=== PATIENT | female | born 2000 | race Hispanic/Latino ===

== ENCOUNTER 2020-08-04 02:47 | Emergency (ER) | payer MEDICAID ==
[2020-08-04 03:39] LABS: Basophils % (Auto) 0.4 % (0.0-1.8); Eosinophils # (Auto) 0.1 K/mm3 (0.0-0.4); Eosinophils % (Auto) 1.5 % (0.0-4.3); Hematocrit 37.1 % (30.3-42.9); Hemoglobin 12.6 gm/dl (10.1-14.3); Lymphocytes # (Auto) 2.6 K/mm3 (1.2-5.4); Lymphocytes % (Auto) 30.3 % (13.4-35.0); Mean Corpuscular HGB Conc 34 % (30-34); Mean Corpuscular Volume 83 fl (79-97); Monocytes # (Auto) 0.8 K/mm3 (0.0-0.8); Monocytes % (Auto) 9.7 % (0.0-7.3); Platelet Count 267 K/mm3 (140-440); Red Blood Count 4.48 M/mm3 (3.65-5.03); Red Cell Distribution Width 16.4 % (13.2-15.2)
[2020-08-04 03:59] LABS: Blood Urea Nitrogen 12 mg/dL (7-17); Calcium 8.7 mg/dL (8.4-10.2); Hemolysis Index 3
[2020-08-04 04:04] LABS: BUN/Creatinine Ratio 17
--- NOTE | 2020-08-04 04:47 | Emergency Department Report ---
HPI - General Chief Complaint: Psych Time Seen by Provider: 08/04/20 04:20 - HPI HPI: Room 16 The patient is a 20-year-old female present with a chief complaint of polysubstance abuse and suicidal ideation. Patient states she came to the emergency department because she has been suicidal since yesterday and she wishes to receive detox from multiple drugs. The patient states she had a plan to be run over by car by walking into traffic but she has not yet made any attempts at harming herself. Patient admits to cocaine, methamphetamine and marijuana use tonight. Patient states she is estimating between 3 to 5 weeks but says she has not yet seen an WILDLIFE CONTROL AGENT for this . Patient denies vaginal bleeding ED Past Medical Hx - Past Medical History Previous Medical History?: No - Surgical History Past Surgical History?: Yes Hx Appendectomy: Yes - Family History Family history: no significant - Social History Smoking Status: Current Every Day Smoker Substance Use Type: Cocaine, Marijuana, Methamphetamines - Medications Home Medications: Home Medications Medication Instructions Recorded Confirmed Last Taken Type Nitrofurantoin [place]/M-Cryst 100 mg PO BID #14 capsule 08/04/20 Unknown Rx [Macrobid CAP] ED Review of Systems ROS: Stated complaint: DRUG USE/SUICIDE Other details as noted in HPI Constitutional: no symptoms reported Eyes: denies: eye pain ENT: denies: throat pain Respiratory: no symptoms reported Cardiovascular: denies: chest pain Endocrine: no symptoms reported Gastrointestinal: denies: abdominal pain Genitourinary: denies: dysuria Musculoskeletal: denies: back pain Neurological: denies: headache Psychiatric: suicidal thoughts Physical Exam - Physical Exam Vital Signs: Vital Signs 08/04/20 02:55 Temperature 98.3 F Pulse Rate 117 H Respiratory 18 Rate Blood Pressure 121/75 O2 Sat by Pulse 99 Oximetry Physical Exam: GENERAL: The patient is well-developed female sitting in chair not appearing to be in acute distress HEENT: Normocephalic. Atraumatic. Extraocular motions are intact. Patient has moist mucous membranes. NECK: Supple. Trachea midline CHEST/LUNGS: Clear to auscultation. There is no respiratory distress noted. HEART/CARDIOVASCULAR: Regular. There is no tachycardia. There is no gallop rub or murmur. ABDOMEN: Abdomen is soft, nontender. Patient has normal bowel sounds. There is no abdominal distention. SKIN: There is no rash. There is no edema. There is no diaphoresis. NEURO: The patient is awake, alert, and oriented. The patient is cooperative. The patient has no focal neurologic deficits. The patient has normal speech and gait. MUSCULOSKELETAL: There is no evidence of acute injury. ED Course Vital Signs 08/04/20 02:55 Temperature 98.3 F Pulse Rate 117 H Respiratory 18 Rate Blood Pressure 121/75 O2 Sat by Pulse 99 Oximetry ED Medical Decision Making - Lab Data Result diagrams: 08/04/20 03:13 08/04/20 03:13 Laboratory Tests 08/04/20 08/04/20 08/04/20 03:13 03:13 03:13 WBC RBC Hgb Hct MCV MCH MCHC RDW Plt Count Lymph % (Auto) [place] % (Auto) Eos % (Auto) Baso % (Auto) Lymph # (Auto) [place] # (Auto) Eos # (Auto) Baso # (Auto) Seg Neutrophils % Seg Neutrophils # Sodium 138 Potassium 3.6 Chloride 104.8 Carbon Dioxide 21 L Anion Gap 16 BUN 12 Creatinine 0.7 Estimated GFR > 60 BUN/Creatinine Ratio 17 Glucose 71 Calcium 8.7 Total Creatine Kinase CK-MB (CK-2) CK-MB (CK-2) Rel Index Troponin T HCG, Quant Urine Color Urine Turbidity Urine pH Ur Specific [place] Urine Protein Urine Glucose (UA) Urine Ketones Urine Blood Urine Nitrite Urine Bilirubin Urine Urobilinogen Ur Leukocyte Esterase Urine WBC (Auto) Urine RBC (Auto) U Epithel Cells (Auto) Urine Bacteria (Auto) Urine Mucus Salicylates < 0.3 L Urine Opiates Screen Urine Methadone Screen Acetaminophen < 5.0 L Ur Barbiturates Screen Ur Phencyclidine Scrn Ur Amphetamines Screen U Benzodiazepines Scrn Urine Cocaine Screen U Marijuana (THC) Screen Drugs of Abuse Note Plasma/Serum Alcohol 08/04/20 08/04/20 08/04/20 03:13 03:13 03:13 WBC 8.6 RBC 4.48 Hgb 12.6 Hct 37.1 MCV 83 MCH 28 MCHC 34 RDW 16.4 H Plt Count 267 Lymph % (Auto) 30.3 [place] % (Auto) 9.7 H Eos % (Auto) 1.5 Baso % (Auto) 0.4 Lymph # (Auto) 2.6 [place] # (Auto) 0.8 Eos # (Auto) 0.1 Baso # (Auto) 0.0 Seg Neutrophils % 58.1 Seg Neutrophils # 5.0 Sodium Potassium Chloride Carbon Dioxide Anion Gap BUN Creatinine Estimated GFR BUN/Creatinine Ratio Glucose Calcium Total Creatine Kinase CK-MB (CK-2) CK-MB (CK-2) Rel Index Troponin T HCG, Quant 59501 H Urine Color Urine Turbidity Urine pH Ur Specific [place] Urine Protein Urine Glucose (UA) Urine Ketones Urine Blood Urine Nitrite Urine Bilirubin Urine Urobilinogen Ur Leukocyte Esterase Urine WBC (Auto) Urine RBC (Auto) U Epithel Cells (Auto) Urine Bacteria (Auto) Urine Mucus Salicylates Urine Opiates Screen Urine Methadone Screen Acetaminophen Ur Barbiturates Screen Ur Phencyclidine Scrn Ur Amphetamines Screen U Benzodiazepines Scrn Urine Cocaine Screen U Marijuana (THC) Screen Drugs of Abuse Note Plasma/Serum Alcohol < 0.01 08/04/20 08/04/20 08/04/20 03:13 03:26 03:26 WBC RBC Hgb Hct MCV MCH MCHC RDW Plt Count Lymph % (Auto) [place] % (Auto) Eos % (Auto) Baso % (Auto) Lymph # (Auto) [place] # (Auto) Eos # (Auto) Baso # (Auto) Seg Neutrophils % Seg Neutrophils # Sodium Potassium Chloride Carbon Dioxide Anion Gap BUN Creatinine Estimated GFR BUN/Creatinine Ratio Glucose Calcium Total Creatine Kinase 507 H CK-MB (CK-2) 4.6 H CK-MB (CK-2) Rel Index 0.9 Troponin T < 0.010 HCG, Quant Urine Color Yellow Urine Turbidity Cloudy Urine pH 5.0 Ur Specific [place] 1.021 Urine Protein 30 mg/dl Urine Glucose (UA) Neg Urine Ketones Neg Urine Blood Neg Urine Nitrite Neg Urine Bilirubin Neg Urine Urobilinogen 2.0 Ur Leukocyte Esterase Lg Urine WBC (Auto) 14.0 H Urine RBC (Auto) 2.0 U Epithel Cells (Auto) 33.0 H Urine Bacteria (Auto) 1+ Urine Mucus 1+ Salicylates Urine Opiates Screen Negative Urine Methadone Screen Negative Acetaminophen Ur Barbiturates Screen Negative Ur Phencyclidine Scrn Negative Ur Amphetamines Screen Positive U Benzodiazepines Scrn Negative Urine Cocaine Screen Positive U Marijuana (THC) Screen Positive Drugs of Abuse Note Disclamer Plasma/Serum Alcohol - EKG Data -: EKG Interpreted by Me EKG shows normal: sinus rhythm Rate: normal - EKG Data When compared to previous EKG there are: previous EKG unavailable Interpretation: normal EKG - Radiology Data Radiology results: report reviewed (Pelvic ultrasound), image reviewed (Pelvic ultrasound) [facility] [address] [place] [address] Ultrasound Report Signed Patient: MARIE DOLL MR#: [id number] : 2000 Acct:[id number] Age/Sex: 20 / F ADM Date: 08/04/20 Loc: ED Attending Dr: Ordering Physician: GO SEVILLA MD Date of Service: 08/04/20 Procedure(s): US OB transvaginal Accession Number(s): [id number] cc: GO SEVILLA MD ULTRASOUND OBSTETRIC INDICATION / CLINICAL INFORMATION: , medical clearance. Pelvic pain, cramping Clinical Gestational Age (GA) in weeks, days: TECHNIQUE: Transabdominal. Transvaginal COMPARISON: None available. FINDINGS: GESTATIONAL SAC: Well-defined oval shape and intrauterine in location. Based on gestational sac measurements, estimated age is 5 weeks 6 days YOLK SAC: No significant abnormality. EMBRYO/FETUS: No significant abnormality. - [place]-Rump Length = 0.18 cm- pole is too small for accurate dating - Heart Rate, beats per minute (if present) = not visualized at this time. ADNEXA: Left ovary: There is a 4.3 cm simple cyst present. There is a second complex cystic mass measuring 2.2 cm. Right ovary: Small complex cyst arising from the right ovary measuring 1.8 cm. FREE FLUID: Trace free fluid present in the cul-de-sac. ADDITIONAL FINDINGS: None. IMPRESSION: 1. Single intrauterine with estimated sonographic age of 5 weeks, 6 days. 2.It is too early in the gestation for visualization of cardiac activity. 3. Bilateral complicated ovarian cysts. Signer Name: Afua Savage MD Signed: 08/04/2020 5:46 AM Workstation Name: [id number] Transcribed By: Dictated By: Afua Savage MD [facility] Authenticated By: Afua Savage MD Signed Date/Time: 08/04/20545 DD/ 9 TD/TT: Print Cancel - Differential Diagnosis Suicidal ideation, polysubstance abuse, Critical care attestation.: If time is entered above; I have spent that time in minutes in the direct care of this critically ill patient, excluding procedure time. ED Disposition Clinical Impression: Suicidal ideation, Polysubstance abuse, UTI (urinary tract infection), Disposition: [id number]/TX-[id number] PSY HOSP/PSY UNIT Is pt being admited?: No Does the pt Need Aspirin: No Condition: Stable Prescriptions: Nitrofurantoin [place]/M-Cryst [Macrobid CAP] 100 mg PO BID #14 capsule Referrals: KAILEY COBURN MD [Primary Care Provider] - 3-5 Days Time of Disposition: 05:55 (Awaiting acceptance)
[2020-08-04 04:50] LABS: Creatine Kinase MB 4.6 ng/mL (0.0-4.0)
[2020-08-04 05:02] LABS: Bacteria,Urine 1+ /HPF (Negative); Bilirubin,Urine NEG (Negative); Blood,Urine NEG (Negative); Color,Urine Yellow (Yellow); Mucus,Urine 1+ /HPF
[2020-08-04 05:09] LABS: Benzodiazepines Screen,Urine Negative; Methadone Screen,Urine Negative; Opiate Screen,Urine Negative
[2020-08-04 05:31] LABS: Amphetamine Screen,Urine Positive; Cannabinoid Screen,Urine Positive; Cocaine Screen,Urine Positive
--- NOTE | 2020-08-04 05:51 | Ultrasound Report ---
ULTRASOUND OBSTETRIC INDICATION / CLINICAL INFORMATION: , medical clearance. Pelvic pain, cramping Clinical Gestational Age (GA) in weeks, days: TECHNIQUE: Transabdominal. Transvaginal COMPARISON: None available. FINDINGS: GESTATIONAL SAC: Well-defined oval shape and intrauterine in location. Based on gestational sac measu rements, estimated age is 5 weeks 6 days YOLK SAC: No significant abnormality. EMBRYO/FETUS: No significant abnormality. - [place]-Rump Length = 0.18 cm- pole is too small for accurate dating - Heart Rate, beats per minute (if present) = not visualized at this time. ADNEXA: Left ovary: There is a 4.3 cm simple cyst present. There is a second complex cystic mass measuring 2. 2 cm. Right ovary: Small complex cyst arising from the right ovary measuring 1.8 cm. FREE FLUID: Trace free fluid present in the cul-de-sac. ADDITIONAL FINDINGS: None. IMPRESSION: 1. Single intrauterine with estimated sonographic age of 5 weeks, 6 days. 2.It is too early in the gestation for visualization of cardiac activity. 3. Bilateral complicated ovarian cysts. Signer Name: Afua Savage MD Signed: 08/04/2020 5:46 AM Workstation Name: [id number]
--- NOTE | 2020-08-04 05:51 | Ultrasound Report ---
ULTRASOUND OBSTETRIC INDICATION / CLINICAL INFORMATION: , medical clearance. Pelvic pain, cramping Clinical Gestational Age (GA) in weeks, days: TECHNIQUE: Transabdominal. Transvaginal COMPARISON: None available. FINDINGS: GESTATIONAL SAC: Well-defined oval shape and intrauterine in location. Based on gestational sac measu rements, estimated age is 5 weeks 6 days YOLK SAC: No significant abnormality. EMBRYO/FETUS: No significant abnormality. - [place]-Rump Length = 0.18 cm- pole is too small for accurate dating - Heart Rate, beats per minute (if present) = not visualized at this time. ADNEXA: Left ovary: There is a 4.3 cm simple cyst present. There is a second complex cystic mass measuring 2. 2 cm. Right ovary: Small complex cyst arising from the right ovary measuring 1.8 cm. FREE FLUID: Trace free fluid present in the cul-de-sac. ADDITIONAL FINDINGS: None. IMPRESSION: 1. Single intrauterine with estimated sonographic age of 5 weeks, 6 days. 2.It is too early in the gestation for visualization of cardiac activity. 3. Bilateral complicated ovarian cysts. Signer Name: Afua Savage MD Signed: 08/04/2020 5:46 AM Workstation Name: [id number]
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
[2020-08-04] MEDS: NITROFURANTOIN MONOHYD/M-CRYST 100 MG CAP PO SCH ×2 (11:28→21:46)
--- NOTE | 2020-08-04 12:23 | Event Note ---
Date: 08/04/20 S: Patient has no complaints. O: Vital signs stable. Patient calm and cooperative. A: Depression; 5 weeks ; polysubstance abuse P: 1013 has been rescinded by psychiatry. Patient requesting detox. Reports that housing and social issues are her primary concern. Case management consult has been ordered by psychiatry team. Will await case management recommendations.
[2020-08-05] MEDS: NITROFURANTOIN MONOHYD/M-CRYST 100 MG CAP PO SCH ×2 (10:14→22:19)
--- NOTE | 2020-08-05 10:58 | Event Note ---
Date: 08/05/20 20-year-old female at approximately 5 weeks gestation who presented with suicidal ideation as well as requesting detox from several medications. Medically cleared and seen by mental health job setter/psychiatry who rescinded the 1013. Labs revealed asymptomatic bacteriuria, currently being treated with Macrobid given . Vital signs reviewed and are stable. Currently awaiting case management consult to assist with disposition.
--- NOTE | 2020-08-06 10:36 | Event Note ---
Date: 08/06/20 20-year-old female at approximately 5 weeks gestation who presented with suicidal ideation as well as requesting detox from several medications. Medically cleared and then seen by mental health in flight technician/psychiatry who rescinded the 1013. Labs revealed asymptomatic bacteriuria. Macrobid changed to Keflex 500 mg 3 times daily x4 days. Vital signs reviewed and are stable. Currently awaiting case management consult to assist with disposition
[2020-08-06] MEDS: cephALEXin 500 MG CAP PO SCH ×3 (11:34→20:37)
[2020-08-06] MEDS: NITROFURANTOIN MONOHYD/M-CRYST 100 MG CAP PO SCH (20:37)
[2020-08-07] MEDS: cephALEXin 500 MG CAP PO SCH (08:26)
[2020-08-07 08:41] VITALS: BP 109/57
[2020-08-07] MEDS ORDERED: ACETAMINOPHEN 325 MG TAB PO PRN (11:03)
[2020-08-07] MEDS ORDERED: PYRIDOXINE 50 MG TAB PO PRN (11:03)
--- NOTE | 2020-08-07 11:11 | Event Note ---
Date: 08/07/20 The patient was evaluated in the emergency department for symptoms described in the history of present illness. He/she was evaluated in the context of the global COVID-19 pandemic, which necessitated consideration that the patient might be at risk for infection with the virus that causes COVID-19. Institutional protocols and algorithms that pertain to the evaluation of patients at risk for COVID-19 are in a state of rapid change based on information released by regulatory bodies including the CDC and federal and state organizations. These policies and algorithms were followed during the patient's care in the emergency department. Please note that these policies, procedures and recommendations changed on a rapid basis. Patient resting comfortably in stretcher, and in no acute distress. medically cleared on initial ER evaluation. Laboratory studies, initial ER documentation reviewed and appreciated, nursing documentation reviewed and appreciated, the psychiatry team has cleared this patient.. Nursing team endorses no acute events this morning. Case management has been involved, and have reached out to [facility]; given that adrian boyce is a previable patient, with evidence of polysubstance abuse. It is unclear if [facility] has requested that this patient remain here in this emergency room, pending their evaluation, which would be unusual, as this patient does not have a viable , and she remains awake, alert, oriented, sober at this time, and exhibits decision-making capacity, and she can care for herself independently. I have also reached out to Adrian Canela, and risk-management, and I have requested that the case management/manager social team discussed with the risk management team, what the expectation and requirements are, in terms of this patient's occurrence of social issues. From a medical and psychiatric standpoint, she is suitable for discharge with outpatient follow-up. Vital Signs 08/04/20 08/04/20 08/04/20 02:55 08:04 20:10 Temperature 98.3 F 98.0 F 98.2 F Pulse Rate 117 H 92 H 80 Respiratory 18 20 18 Rate Blood Pressure 121/75 Blood Pressure 106/63 103/41 [Right] O2 Sat by Pulse 99 97 95 Oximetry 08/05/20 08/05/20 08/06/20 05:50 19:41 01:30 Temperature 98.6 F 99.2 F 98.9 F Pulse Rate 70 88 82 Respiratory 18 19 16 Rate Blood Pressure Blood Pressure 107/52 112/65 115/68 [Right] O2 Sat by Pulse 95 96 100 Oximetry 08/06/20 08/06/20 08/07/20 09:04 20:20 02:40 Temperature 98.7 F 99.1 F 98.2 F Pulse Rate 70 68 77 Respiratory 20 18 16 Rate Blood Pressure Blood Pressure 118/42 122/64 122/65 [Right] O2 Sat by Pulse 100 100 Oximetry 08/07/20 08:40 Temperature 98.3 F Pulse Rate 70 Respiratory 18 Rate Blood Pressure Blood Pressure 109/57 [Right] O2 Sat by Pulse 98 Oximetry Lab Results 08/04/20 08/04/20 08/04/20 Range/Units 03:13 03:13 03:13 WBC (4.5-11.0) K/mm3 RBC (3.65-5.03) M/mm3 Hgb (10.1-14.3) gm/dl Hct (30.3-42.9) % MCV (79-97) fl MCH (28-32) pg MCHC (30-34) % RDW (13.2-15.2) % Plt Count (140-440) K/mm3 Lymph % (Auto) (13.4-35.0) % Page % (Auto) (0.0-7.3) % Eos % (Auto) (0.0-4.3) % Baso % (Auto) (0.0-1.8) % Lymph # (Auto) (1.2-5.4) K/mm3 Page # (Auto) (0.0-0.8) K/mm3 Eos # (Auto) (0.0-0.4) K/mm3 Baso # (Auto) (0.0-0.1) K/mm3 Seg Neutrophils % (40.0-70.0) % Seg Neutrophils # (1.8-7.7) K/mm3 Sodium 138 (137-145) mmol/L Potassium 3.6 (3.6-5.0) mmol/L Chloride 104.8 (98-107) mmol/L Carbon Dioxide 21 L (22-30) mmol/L Anion Gap 16 mmol/L BUN 12 (7-17) mg/dL Creatinine 0.7 (0.6-1.2) mg/dL Estimated GFR > 60 ml/min BUN/Creatinine Ratio 17 % Glucose 71 (65-100) mg/dL Calcium 8.7 (8.4-10.2) mg/dL Total Creatine Kinase (30-135) units/L CK-MB (CK-2) (0.0-4.0) ng/mL CK-MB (CK-2) Rel Index (0-4) Troponin T (0.00-0.029) ng/mL HCG, Quant (0-4) mIU/mL Urine Color (Yellow) Urine Turbidity (Clear) Urine pH (5.0-7.0) Ur Specific [place] (1.003-1.030) Urine Protein (Negative) mg/dL Urine Glucose (UA) (Negative) mg/dL Urine Ketones (Negative) mg/dL Urine Blood (Negative) Urine Nitrite (Negative) Urine Bilirubin (Negative) Urine Urobilinogen (<2.0) mg/dL Ur Leukocyte Esterase (Negative) Urine WBC (Auto) (0.0-6.0) /HPF Urine RBC (Auto) (0.0-6.0) /HPF U Epithel Cells (Auto) (0-13.0) /HPF Urine Bacteria (Auto) (Negative) /HPF Urine Mucus /HPF Salicylates < 0.3 L (2.8-20.0) mg/dL Urine Opiates Screen Urine Methadone Screen Acetaminophen < 5.0 L (10.0-30.0) ug/mL Ur Barbiturates Screen Ur Phencyclidine Scrn Ur Amphetamines Screen U Benzodiazepines Scrn Urine Cocaine Screen U Marijuana (THC) Screen Drugs of Abuse Note Plasma/Serum Alcohol (0-0.07) % 08/04/20 08/04/20 08/04/20 Range/Units 03:13 03:13 03:13 WBC 8.6 (4.5-11.0) K/mm3 RBC 4.48 (3.65-5.03) M/mm3 Hgb 12.6 (10.1-14.3) gm/dl Hct 37.1 (30.3-42.9) % MCV 83 (79-97) fl MCH 28 (28-32) pg MCHC 34 (30-34) % RDW 16.4 H (13.2-15.2) % Plt Count 267 (140-440) K/mm3 Lymph % (Auto) 30.3 (13.4-35.0) % Page % (Auto) 9.7 H (0.0-7.3) % Eos % (Auto) 1.5 (0.0-4.3) % Baso % (Auto) 0.4 (0.0-1.8) % Lymph # (Auto) 2.6 (1.2-5.4) K/mm3 Page # (Auto) 0.8 (0.0-0.8) K/mm3 Eos # (Auto) 0.1 (0.0-0.4) K/mm3 Baso # (Auto) 0.0 (0.0-0.1) K/mm3 Seg Neutrophils % 58.1 (40.0-70.0) % Seg Neutrophils # 5.0 (1.8-7.7) K/mm3 Sodium (137-145) mmol/L Potassium (3.6-5.0) mmol/L Chloride (98-107) mmol/L Carbon Dioxide (22-30) mmol/L Anion Gap mmol/L BUN (7-17) mg/dL Creatinine (0.6-1.2) mg/dL Estimated GFR ml/min BUN/Creatinine Ratio % Glucose (65-100) mg/dL Calcium (8.4-10.2) mg/dL Total Creatine Kinase (30-135) units/L CK-MB (CK-2) (0.0-4.0) ng/mL CK-MB (CK-2) Rel Index (0-4) Troponin T (0.00-0.029) ng/mL HCG, Quant 08328 H (0-4) mIU/mL Urine Color (Yellow) Urine Turbidity (Clear) Urine pH (5.0-7.0) Ur Specific [place] (1.003-1.030) Urine Protein (Negative) mg/dL Urine Glucose (UA) (Negative) mg/dL Urine Ketones (Negative) mg/dL Urine Blood (Negative) Urine Nitrite (Negative) Urine Bilirubin (Negative) Urine Urobilinogen (<2.0) mg/dL Ur Leukocyte Esterase (Negative) Urine WBC (Auto) (0.0-6.0) /HPF Urine RBC (Auto) (0.0-6.0) /HPF U Epithel Cells (Auto) (0-13.0) /HPF Urine Bacteria (Auto) (Negative) /HPF Urine Mucus /HPF Salicylates (2.8-20.0) mg/dL Urine Opiates Screen Urine Methadone Screen Acetaminophen (10.0-30.0) ug/mL Ur Barbiturates Screen Ur Phencyclidine Scrn Ur Amphetamines Screen U Benzodiazepines Scrn Urine Cocaine Screen U Marijuana (THC) Screen Drugs of Abuse Note Plasma/Serum Alcohol < 0.01 (0-0.07) % 08/04/20 08/04/20 08/04/20 Range/Units 03:13 03:26 03:26 WBC (4.5-11.0) K/mm3 RBC (3.65-5.03) M/mm3 Hgb (10.1-14.3) gm/dl Hct (30.3-42.9) % MCV (79-97) fl MCH (28-32) pg MCHC (30-34) % RDW (13.2-15.2) % Plt Count (140-440) K/mm3 Lymph % (Auto) (13.4-35.0) % Page % (Auto) (0.0-7.3) % Eos % (Auto) (0.0-4.3) % Baso % (Auto) (0.0-1.8) % Lymph # (Auto) (1.2-5.4) K/mm3 Page # (Auto) (0.0-0.8) K/mm3 Eos # (Auto) (0.0-0.4) K/mm3 Baso # (Auto) (0.0-0.1) K/mm3 Seg Neutrophils % (40.0-70.0) % Seg Neutrophils # (1.8-7.7) K/mm3 Sodium (137-145) mmol/L Potassium (3.6-5.0) mmol/L Chloride (98-107) mmol/L Carbon Dioxide (22-30) mmol/L Anion Gap mmol/L BUN (7-17) mg/dL Creatinine (0.6-1.2) mg/dL Estimated GFR ml/min BUN/Creatinine Ratio % Glucose (65-100) mg/dL Calcium (8.4-10.2) mg/dL Total Creatine Kinase 507 H (30-135) units/L CK-MB (CK-2) 4.6 H (0.0-4.0) ng/mL CK-MB (CK-2) Rel Index 0.9 (0-4) Troponin T < 0.010 (0.00-0.029) ng/mL HCG, Quant (0-4) mIU/mL Urine Color Yellow (Yellow) Urine Turbidity Cloudy (Clear) Urine pH 5.0 (5.0-7.0) Ur Specific [place] 1.021 (1.003-1.030) Urine Protein 30 mg/dl (Negative) mg/dL Urine Glucose (UA) Neg (Negative) mg/dL Urine Ketones Neg (Negative) mg/dL Urine Blood Neg (Negative) Urine Nitrite Neg (Negative) Urine Bilirubin Neg (Negative) Urine Urobilinogen 2.0 (<2.0) mg/dL Ur Leukocyte Esterase Lg (Negative) Urine WBC (Auto) 14.0 H (0.0-6.0) /HPF Urine RBC (Auto) 2.0 (0.0-6.0) /HPF U Epithel Cells (Auto) 33.0 H (0-13.0) /HPF Urine Bacteria (Auto) 1+ (Negative) /HPF Urine Mucus 1+ /HPF Salicylates (2.8-20.0) mg/dL Urine Opiates Screen Negative Urine Methadone Screen Negative Acetaminophen (10.0-30.0) ug/mL Ur Barbiturates Screen Negative Ur Phencyclidine Scrn Negative Ur Amphetamines Screen Positive U Benzodiazepines Scrn Negative Urine Cocaine Screen Positive U Marijuana (THC) Screen Positive Drugs of Abuse Note Disclamer Plasma/Serum Alcohol (0-0.07) %
[2020-08-07] MEDS ORDERED: PRENATAL VIT27-FE FUMARATE-FOLIC ACID VIT TAB PO SCH (12:00)
--- NOTE | 2020-08-10 11:13 | Electrocardiograph Report ---
[facility] Test Date: 2020-08-04 Test Time: 04:39:36 Pat Name: MARIE DOLL Department: Room: Gender: F [employer] Irrigator: CRISTEL : 2000 Requested By: GO SEVILLA Order Number: [id number] Reading MD: Ashleigh Mckeon Measurements Intervals [place] Rate: 81 P: -26 VA: 171 QRS: 57 QRSD: 90 T: 44 QT: 385 QTc: 446 Interpretive Statements Sinus rhythm No previous ECG available for comparison Electronically Signed On 08-10-2020 11:13:06 EDT by Ashleigh Mckeon
== END 2020-08-07 13:24 | disposition home or self-care (01) ==
LOC: ED 02:47
DX: O23.41 Unspecified infection of urinary tract in pregnancy, first trimester (principal); O26.891 Other specified pregnancy related conditions, first trimester; R45.851 Suicidal ideations; F19.10 Other psychoactive substance abuse, uncomplicated; F17.200 Nicotine dependence, unspecified, uncomplicated; F12.10 Cannabis abuse, uncomplicated; F14.10 Cocaine abuse, uncomplicated; Z3A.01 Less than 8 weeks gestation of pregnancy; Z90.49 Acquired absence of other specified parts of digestive tract; Z79.899 Other long term (current) drug therapy
CPT/HCPCS: 36415; 76801; 76817; 80048; 80307; 80320; 81001; 82550; 82553; 84484; 84702; 85025; 87086; 93005; G0480

== ENCOUNTER 2020-08-08 03:58 | Emergency (ER) | payer MEDICAID ==
[2020-08-08 04:29] VITALS: BP 149/89
[2020-08-08 05:14] LABS: Bacteria,Urine 2+ /HPF (Negative); Bilirubin,Urine NEG (Negative); Blood,Urine NEG (Negative); Color,Urine Amber (Yellow); Mucus,Urine 3+ /HPF
[2020-08-08 05:15] LABS: Basophils % (Auto) 0.3 % (0.0-1.8); Eosinophils % (Auto) 0.1 % (0.0-4.3); Hematocrit 40.5 % (30.3-42.9); Hemoglobin 13.4 gm/dl (10.1-14.3); Lymphocytes # (Auto) 1.7 K/mm3 (1.2-5.4); Lymphocytes % (Auto) 15.8 % (13.4-35.0); Mean Corpuscular HGB Conc 33 % (30-34); Mean Corpuscular Volume 82 fl (79-97); Monocytes # (Auto) 0.9 K/mm3 (0.0-0.8); Platelet Count 306 K/mm3 (140-440); Red Blood Count 4.92 M/mm3 (3.65-5.03); Red Cell Distribution Width 16.6 % (13.2-15.2)
[2020-08-08 05:20] LABS: Benzodiazepines Screen,Urine Negative; Methadone Screen,Urine Negative; Opiate Screen,Urine Negative
[2020-08-08 05:33] LABS: Amphetamine Screen,Urine Positive; Cannabinoid Screen,Urine Positive; Cocaine Screen,Urine Positive
[2020-08-08 05:36] LABS: Blood Urea Nitrogen 10 mg/dL (7-17); Calcium 9.7 mg/dL (8.4-10.2); Hemolysis Index 0
[2020-08-08 05:37] LABS: BUN/Creatinine Ratio 17
== END 2020-08-08 06:06 | disposition left against medical advice (07) ==
LOC: ED 03:58
DX: R45.851 Suicidal ideations (principal); Z53.21 Procedure and treatment not carried out due to patient leaving prior to being seen by health care provider
CPT/HCPCS: 36415; 80048; 80307; 80320; 81001; 85025; 87086; G0480

== ENCOUNTER 2020-08-11 16:40 | Emergency (ER) | payer MEDICAID | END 2020-08-11 16:45 | disposition left against medical advice (07) | LOC: ED 16:40 | DX: Z53.21 Procedure and treatment not carried out due to patient leaving prior to being seen by health care provider (principal) ==